=== PATIENT | female | born 2000 | race Caucasian/White ===

== ENCOUNTER 2019-06-12 19:26 | Emergency (ER) | payer OTHER ==
[~2019-06-12] VITALS: Ht 160 cm; Wt 55.3 kg
[2019-06-12 20:05] VITALS: Ht 160 cm; Wt 55.3 kg
[2019-06-13 00:35] LABS: FREE T4 3.47 ng/dL (0.76-1.46)
[2019-06-13 01:16] VITALS: BP 121/80
== END 2019-06-13 02:37 | disposition home or self-care (01) ==
LOC: ED 19:26
PROVIDERS: Emergency Medicine
DX: H66.91 Otitis media, unspecified, right ear (principal); E03.9 Hypothyroidism, unspecified; E05.90 Thyrotoxicosis, unspecified without thyrotoxic crisis or storm
CPT/HCPCS: 84439; 87804; J7512